=== PATIENT | female | born 1985 | race Caucasian/White ===

== ENCOUNTER 2018-02-20 08:50 | Emergency (ER) | payer OTHER ==
[~2018-02-20] VITALS: Ht 157.5 cm; Wt 48.6 kg
[2018-02-20 09:25] VITALS: BP 135/96
== END 2018-02-20 10:04 | disposition home or self-care (01) ==
LOC: EMS 08:51
DX: R20.2 Paresthesia of skin (principal); V49.49XA Driver injured in collision with other motor vehicles in traffic accident, initial encounter; Y93.89 Activity, other specified; Y92.89 Other specified places as the place of occurrence of the external cause; Y99.8 Other external cause status